=== PATIENT | female | born 1940 | race Caucasian/White ===

== ENCOUNTER 2018-02-21 06:54 | Emergency (ER) | payer MEDICARE, BC ==
[~2018-02-21] VITALS: Ht 545.9 cm; Wt 60.0 kg
[~2018-02-21 06:54] MED LIST: ASPI-1265 PO; BIMA2.5D4 OP; LIDO700A32 TOP; LISI-222 PO; METF500T7 PO; RIVA20TA PO; SIMV80TA2 PO
[2018-02-21 06:58] VITALS: BP 172/87
[2018-02-21] MEDS ORDERED: LIDOcaine 1.5% w/epinephrine 1:200,000 5ml ampul IJ ONE (07:20)
[2018-02-21 10:09] LABS: COLOR,SYNOVIAL FLUID RED
[2018-02-21 10:10] LABS: APPEARANCE,SYNOVIAL FLUID CLOUDY; SYN RBC 31000 /CU MM (0); SYN WBC 606 /CU MM (0-200)
[2018-02-21 10:16] LABS: SYNOVIAL FLUID CRYSTALS QT NO CRYSTALS SEEN
== END 2018-02-21 08:42 | disposition home or self-care (01) ==
LOC: ER 06:55
DX: M70.21 Olecranon bursitis, right elbow (principal); I48.91 Unspecified atrial fibrillation; I25.10 Atherosclerotic heart disease of native coronary artery without angina pectoris; E78.00 Pure hypercholesterolemia, unspecified; I10 Essential (primary) hypertension; Z90.49 Acquired absence of other specified parts of digestive tract; Z90.710 Acquired absence of both cervix and uterus; Z95.1 Presence of aortocoronary bypass graft; Z86.73 Personal history of transient ischemic attack (TIA), and cerebral infarction without residual deficits; Z98.890 Other specified postprocedural states; Z79.82 Long term (current) use of aspirin; Z79.84 Long term (current) use of oral hypoglycemic drugs; Z79.899 Other long term (current) drug therapy; Y93.89 Activity, other specified
CPT/HCPCS: 20605; 89051; 89060; 99284; J3490

== ENCOUNTER 2018-11-21 00:08 | Emergency (ER) | payer MEDICARE, BC ==
[~2018-11-21] VITALS: Ht 154.9 cm; Wt 64.5 kg
[2018-11-21] MEDS ORDERED: aspirin 81mg tab.chew PO ONE (00:15)
[2018-11-21 01:03] LABS: BASOPHILS % (AUTO) 0.1 % (0-1); EOSINOPHILS # (AUTO) 0.3 X10'3 (0-0.9); EOSINOPHILS % (AUTO) 4.8 % (0-6); HEMATOCRIT 37.8 % (35.0-45.0); HEMOGLOBIN 12.1 g/dl (12.0-16.0); LYMPHOCYTES % (AUTO) 28.3 % (21-51); MEAN CORPUSCULAR HEMOGLOBIN 28.8 PG (27.0-31.0); MONOCYTES # (AUTO) 0.6 X10'3 (0-0.9); MONOCYTES % (AUTO) 8.9 % (2-12); NEUTROPHILS # (AUTO) 4.1 X10'3 (1.8-7.7); NEUTROPHILS % (AUTO) 57.9 % (42-75); PLATELET COUNT 222 X10'3 (140-440)
[2018-11-21 01:31] LABS: ALANINE AMINOTRANSFERASE 26 U/L (12-78); ALBUMIN 3.4 G/DL (3.4-5.0); ALBUMIN/GLOBULIN RATIO 1.2 (1.1-1.5); ALKALINE PHOSPHATASE 76 IU/L (46-116); ANION GAP 10 (8-16); ASPARTATE AMINO TRANSFERASE 22 U/L (10-37); BILIRUBIN,TOTAL 0.2 MG/DL (0.1-1.0); BLOOD UREA NITROGEN 20 MG/DL (7-18); BUN/CREATININE RATIO 19.4 (6.6-38.0); CALCIUM 8.8 MG/DL (8.5-10.1); CHLORIDE 108 MMOL/L (99-107); CREATININE 1.03 MG/DL (0.40-0.90); GLUCOSE 162 MG/DL (70-104); SODIUM 141 MMOL/L (135-145); TOTAL CARBON DIOXIDE 22.7 MMOL/L (24-32); TOTAL PROTEIN 6.3 G/DL (6.4-8.2); eGFR 52 ML/MIN
[2018-11-21 01:33] LABS: INR 1.3 INR; PARTIAL THROMBOPLASTIN TIME 35 SECONDS (22-32); PROTHROMBIN TIME 13.3 SECONDS (9.0-12.0)
[2018-11-21 01:38] LABS: MAGNESIUM 1.8 MG/DL (1.5-2.4)
[2018-11-21 03:30] VITALS: BP 142/80
[2018-11-21] MEDS ORDERED: acetaminophen 325mg tablet PO ONE (03:55)
== END 2018-11-21 04:58 | disposition home or self-care (01) ==
LOC: ER 00:08
DX: R00.2 Palpitations (principal); M25.512 Pain in left shoulder; I48.91 Unspecified atrial fibrillation; I25.10 Atherosclerotic heart disease of native coronary artery without angina pectoris; E78.00 Pure hypercholesterolemia, unspecified; I10 Essential (primary) hypertension; Z86.73 Personal history of transient ischemic attack (TIA), and cerebral infarction without residual deficits; Z95.1 Presence of aortocoronary bypass graft; Z90.49 Acquired absence of other specified parts of digestive tract; Z90.710 Acquired absence of both cervix and uterus; Z79.82 Long term (current) use of aspirin; Z79.899 Other long term (current) drug therapy
CPT/HCPCS: 36415; 71045; 80053; 83735; 83880; 84484; 85025; 85379; 85610; 85730; 93005; 99284

== ENCOUNTER 2019-11-07 11:10 | Inpatient (IN) | payer MEDICARE, BC ==
[~2019-11-07] VITALS: Ht 154.9 cm; Wt 60.7 kg
[~2019-11-07 11:10] MED LIST changes: +METF500T20 PO; -METF500T7 PO
[2019-11-07 11:30] VITALS: BP 147/79
[2019-11-07] MEDS ORDERED: diphenhydrAMINE 25mg capsule PO PRN (11:35)
[2019-11-07] MEDS ORDERED: LORazepam 0.5 MG tablet PO PRN (11:35)
[2019-11-07] MEDS: normal saline 1,000 ML IV SCH ×2 (11:59→21:07)
[2019-11-07 12:05] LABS: BASOPHILS # (AUTO) 0.1 X10'3 (0-0.2); BASOPHILS % (AUTO) 0.7 % (0-1); EOSINOPHILS # (AUTO) 0.1 X10'3 (0-0.9); EOSINOPHILS % (AUTO) 1.3 % (0-6); HEMATOCRIT 40.5 % (35.0-45.0); HEMOGLOBIN 13.5 g/dl (12.0-16.0); LYMPHOCYTES # (AUTO) 1.5 X10'3 (1.1-4.8); LYMPHOCYTES % (AUTO) 15.4 % (21-51); MEAN CORPUSCULAR HEMOGLOBIN 30.4 PG (27.0-31.0); MEAN CORPUSCULAR HGB CONC 33.2 g/dL (33.0-36.5); MEAN CORPUSCULAR VOLUME 91.4 FL (78-98); MEAN PLATELET VOLUME 9.5 FL (7.4-10.4); MONOCYTES # (AUTO) 0.6 X10'3 (0-0.9); MONOCYTES % (AUTO) 6.8 % (2-12); NEUTROPHILS # (AUTO) 7.1 X10'3 (1.8-7.7); NEUTROPHILS % (AUTO) 75.8 % (42-75); PLATELET COUNT 240 X10'3 (140-440); RED BLOOD COUNT 4.43 X10'6 (4.20-5.60); RED CELL DISTRIBUTION WIDTH 14.2 % (11.5-14.5); WHITE BLOOD COUNT 9.4 X10'3 (4.5-11.0)
[2019-11-07] MEDS ORDERED: LISI-644 PO (12:13)
[2019-11-07 12:14] LABS: ALBUMIN 4.1 G/DL (3.4-5.0); ANION GAP 13 (8-16); BLOOD UREA NITROGEN 22 MG/DL (7-18); BUN/CREATININE RATIO 16.9 (6.6-38.0); CALCIUM 9.6 MG/DL (8.5-10.1); CHLORIDE 107 MMOL/L (99-107); GLUCOSE 145 MG/DL (70-104); POTASSIUM 4.4 MMOL/L (3.5-5.1); SODIUM 141 MMOL/L (135-145); TOTAL CARBON DIOXIDE 21.4 MMOL/L (24-32); eGFR 39 ML/MIN
[2019-11-07] MEDS ORDERED: MAGN400C PO (12:16)
[2019-11-07] MEDS ORDERED: CLOP75TA15 PO (12:16)
[2019-11-07] MEDS ORDERED: DILT-88 PO (12:16)
[2019-11-07] MEDS ORDERED: LIDOcaine 1% (10mg/ml)w/preservative injection 20ml MDV ONE (15:31)
[2019-11-07] MEDS ORDERED: iohexol 350MG/ML 100ml bottle IV ONE ×2 (15:31→17:51)
[2019-11-07] MEDS ORDERED: heparin 1,000 UNITS/NS 500ml 500 ML ONE (15:32)
[2019-11-07] MEDS ORDERED: atropine 0.1mg/ml 10ml syringe ONE (16:56)
[2019-11-07] MEDS ORDERED: fentaNYL/PF 50MCG/1 ML 2ML syringe ONE (16:56)
[2019-11-07] MEDS ORDERED: midazolam 2 mg/2 ml injection ONE (16:56)
[2019-11-07] MEDS ORDERED: phenylephrine 10mg/ml inj. ONE (16:56)
[2019-11-07] MEDS ORDERED: DOPamine 400mg/D5W 250ml 250 ML IV ONE (17:29)
[2019-11-07] MEDS ORDERED: heparin 1,000unit/ml 10ml vial 10 ML ONE (17:46)
[2019-11-07] MEDS ORDERED: clopidogrel 300mg tablet ONE (18:36)
[2019-11-07 19:05] VITALS: BP 91/36
[2019-11-07] MEDS ORDERED: OXAZEpam 15mg capsule PO PRN (19:20)
[2019-11-07] MEDS ORDERED: HYDROcodone/acetaminophen 10/325mg tab PO PRN (19:20)
[2019-11-07] MEDS ORDERED: HYDROcodone/acetaminophen 5mg/325mg tablet PO PRN (19:20)
[2019-11-07] MEDS ORDERED: acetaminophen 325mg tablet PO PRN (19:20)
[2019-11-07] MEDS ORDERED: magnesium oxide 400mg tablet PO SCH (19:20)
[2019-11-07] MEDS ORDERED: hydrALAZINE 20mg/ml inj. IV PRN (19:20)
[2019-11-07] MEDS ORDERED: DOPamine 400mg/D5W 250ml 250 ML IV SCH (19:20)
[2019-11-07] MEDS ORDERED: pseudoephedrine 30mg tablet PO PRN (19:20)
--- NOTE | 2019-11-07 19:36 | NUR ---
Patient arrived from Short stay to PCU at 1900. Alert, oriented x4. She will be at bedrest for 6 hours, until 0100.
[2019-11-07] MEDS: normal saline 1000ml 1,000 ML IV SCH (20:59)
[2019-11-07] MEDS ORDERED: latanoprost 0.005% 2.5ml ophthalmic drops EACHEYE SCH (21:00)
[2019-11-07] MEDS ORDERED: atorvastatin 20mg tablet PO SCH (21:00)
[2019-11-07] MEDS ORDERED: diltiazem CD 120mg capsule (once-daily) PO SCH (21:00)
[2019-11-07 22:00] VITALS: BP 103/79
[2019-11-07 22:35] VITALS: BP 103/79
--- NOTE | 2019-11-07 23:53 | NUR ---
Patient is doing fine. Not on any distress at the time, the right groin site is clean, dry, intact, No tenderness, no swelling, or pain upon touching the area. No hematoma.
[2019-11-08 02:00] VITALS: BP 94/48
[2019-11-08] MEDS: normal saline 1000ml 1,000 ML IV SCH (05:20)
--- NOTE | 2019-11-08 06:20 | NUR ---
Patient in room PCU 3026. I have received report from CHERRY Randle and had the opportunity to ask questions and assume patient care.
--- NOTE | 2019-11-08 06:21 | NUR ---
Problems reprioritized. Patient report given to TeriRN, questions answered & plan of care reviewed with
[2019-11-08 07:00] VITALS: BP 89/46
--- NOTE | 2019-11-08 07:09 | NUR ---
Talked to CASS Colon regarding no code status in computer, she informed me she would place order in computer.
[2019-11-08] MEDS ORDERED: DILT-88 PO (07:50)
[2019-11-08] MEDS ORDERED: LISI-644 PO (07:50)
[2019-11-08] MEDS ORDERED: METF500T20 PO (07:50)
[2019-11-08 08:00] VITALS: BP_SYST 88
[2019-11-08] MEDS ORDERED: lisinopril 20mg tablet PO SCH (08:00)
[2019-11-08] MEDS ORDERED: clopidogrel 75mg tablet PO SCH (08:00)
--- NOTE | 2019-11-08 08:00 | NUR ---
Patient's skin looked clean and dry, no previous wounds were noted at time of physical assessment. Right groin had a dressing over site from angiogram that was done on 11/07/19 which was clean, dry and intact.
[2019-11-08] MEDS ORDERED: normal saline 500ml IV soln 1,000 ML IV ONE (09:20)
--- NOTE | 2019-11-08 09:20 | NUR ---
Informed CASS Colon of patient blood pressure being 82/40, got a new verbal order to give a one time Bolus of normal saline 250ml. Will continue to monitor blood pressure.
[2019-11-08] MEDS: normal saline 1,000 ML IV SCH (09:27)
--- NOTE | 2019-11-08 10:47 | NUR ---
Patient stable for discharge. All instructions were given, questions were answered. Belongings were collected and sent with patient. PIV discontinued, cannula intact. Tele discontinued, telegraph service clerk notified. Transferred patient to lobby in wheelchair, and helped into brother in law's personal vehicle.
[2019-11-08] MEDS ORDERED: rivaroxaban 20mg tablet PO SCH (21:00)
[2019-11-09] MEDS ORDERED: metFORMIN 500mg tablet PO SCH (07:30)
== END 2019-11-08 12:35 | disposition home or self-care (01) | DRG 35 ==
LOC: SSTAY O 11:10 → PCU 3S 21:10
PROVIDERS: ADMIT Internal Medicine Interventional Cardiology; ATTEND Internal Medicine Interventional Cardiology
PROC: 037K34Z Dilation of Right Internal Carotid Artery with Drug-eluting Intraluminal Device, Percutaneous Approach (ICD-10-PCS; principal; 2019-11-07)
PROC: B3191ZZ Fluoroscopy of Right External Carotid Artery using Low Osmolar Contrast (ICD-10-PCS; 2019-11-07)
PROC: B3161ZZ Fluoroscopy of Right Internal Carotid Artery using Low Osmolar Contrast (ICD-10-PCS; 2019-11-07)
PROC: B41F1ZZ Fluoroscopy of Right Lower Extremity Arteries using Low Osmolar Contrast (ICD-10-PCS; 2019-11-07)
DX: I65.23 Occlusion and stenosis of bilateral carotid arteries (principal); I42.9 Cardiomyopathy, unspecified; E11.9 Type 2 diabetes mellitus without complications; I48.0 Paroxysmal atrial fibrillation; I10 Essential (primary) hypertension; I27.20 Pulmonary hypertension, unspecified; N28.9 Disorder of kidney and ureter, unspecified; Z79.84 Long term (current) use of oral hypoglycemic drugs; Z79.899 Other long term (current) drug therapy
CPT/HCPCS: 36415; 80048; 82948; 85025; 85610; 93005; G0378; J0461; J1265; J1644; J2001; J2250; J2370; J3010; J7030; J7040; Q0163; Q9967

== ENCOUNTER 2019-11-11 07:22 | Emergency (ER) | payer MEDICARE, BC ==
[~2019-11-11] VITALS: Ht 154.9 cm; Wt 62.0 kg
[~2019-11-11 07:22] MED LIST changes: -ASPI-1265 PO; +CLOP75TA15 PO; +DILT-88 PO; -LIDO700A32 TOP; -LISI-222 PO; +LISI-644 PO; +MAGN400C PO
[2019-11-11 08:13] LABS: BASOPHILS # (AUTO) 0.1 X10'3 (0-0.2); BASOPHILS % (AUTO) 0.7 % (0-1); EOSINOPHILS # (AUTO) 0.3 X10'3 (0-0.9); EOSINOPHILS % (AUTO) 3.4 % (0-6); LYMPHOCYTES # (AUTO) 1.9 X10'3 (1.1-4.8); LYMPHOCYTES % (AUTO) 23.4 % (21-51); MEAN CORPUSCULAR HEMOGLOBIN 31.1 PG (27.0-31.0); MEAN CORPUSCULAR HGB CONC 33.5 g/dL (33.0-36.5); MEAN PLATELET VOLUME 10.1 FL (7.4-10.4); MONOCYTES # (AUTO) 0.7 X10'3 (0-0.9); MONOCYTES % (AUTO) 8.6 % (2-12); NEUTROPHILS # (AUTO) 5.2 X10'3 (1.8-7.7); NEUTROPHILS % (AUTO) 63.9 % (42-75); PLATELET COUNT 223 X10'3 (140-440); RED BLOOD COUNT 3.22 X10'6 (4.20-5.60); RED CELL DISTRIBUTION WIDTH 14.3 % (11.5-14.5); WHITE BLOOD COUNT 8.1 X10'3 (4.5-11.0)
--- NOTE | 2019-11-11 08:19 | NUR ---
general assesment compleated by my self jenn garcia
[2019-11-11 08:27] LABS: PARTIAL THROMBOPLASTIN TIME 30 SECONDS (22-32)
[2019-11-11 08:28] LABS: ALANINE AMINOTRANSFERASE 27 U/L (12-78); ALBUMIN 3.6 G/DL (3.4-5.0); ALBUMIN/GLOBULIN RATIO 1.1 (1.1-1.5); ALKALINE PHOSPHATASE 65 IU/L (46-116); ANION GAP 10 (8-16); ASPARTATE AMINO TRANSFERASE 34 U/L (10-37); BILIRUBIN,TOTAL 0.4 MG/DL (0.1-1.0); BLOOD UREA NITROGEN 14 MG/DL (7-18); BUN/CREATININE RATIO 12.8 (6.6-38.0); CHLORIDE 110 MMOL/L (99-107); CREATININE 1.09 MG/DL (0.40-0.90); GLUCOSE 130 MG/DL (70-104); SODIUM 142 MMOL/L (135-145); TOTAL CARBON DIOXIDE 21.6 MMOL/L (24-32); eGFR 48 ML/MIN
[2019-11-11 08:44] VITALS: BP 123/56
[2019-11-11 09:11] LABS: D-DIMER 0.43 MG/L FEU (0-0.50)
--- NOTE | 2019-11-11 09:25 | NUR ---
geoscience technician at bedside for study as ordered.
[2019-11-11] MEDS ORDERED: furosemide 10 MG/1 ML 10ml inj IV ONE (09:55)
[2019-11-11] MEDS ORDERED: furosemide 40mg/4ml inj IV ONE (09:55)
== END 2019-11-11 10:15 | disposition home or self-care (01) ==
LOC: ER 07:22
DX: R06.02 Shortness of breath (principal); I10 Essential (primary) hypertension; E78.00 Pure hypercholesterolemia, unspecified; I48.91 Unspecified atrial fibrillation; I25.10 Atherosclerotic heart disease of native coronary artery without angina pectoris; Z90.49 Acquired absence of other specified parts of digestive tract; Z90.710 Acquired absence of both cervix and uterus; Z90.89 Acquired absence of other organs; Z95.1 Presence of aortocoronary bypass graft; Z79.899 Other long term (current) drug therapy
CPT/HCPCS: 36415; 71045; 80053; 83880; 84484; 85025; 85379; 85610; 85730; 93306; 96374; 99285; J1940; 93005

== ENCOUNTER 2020-11-05 16:16 | Emergency (ER) | payer MEDICARE, BC ==
[~2020-11-05] VITALS: Ht 154.9 cm; Wt 63.0 kg
[~2020-11-05 16:16] MED LIST changes: +METF-900 PO; -METF500T20 PO
[2020-11-05] MEDS ORDERED: HYDROcodone/acetaminophen 10/325mg tab PO ONE (17:30)
[2020-11-05] MEDS ORDERED: HYDR-3973 PO (17:34)
[2020-11-05 18:11] VITALS: BP 179/88
== END 2020-11-05 18:15 | disposition home or self-care (01) ==
LOC: ER 16:17
DX: S22.31XA Fracture of one rib, right side, initial encounter for closed fracture (principal); I48.91 Unspecified atrial fibrillation; I25.10 Atherosclerotic heart disease of native coronary artery without angina pectoris; E78.00 Pure hypercholesterolemia, unspecified; I10 Essential (primary) hypertension; Z86.73 Personal history of transient ischemic attack (TIA), and cerebral infarction without residual deficits; Z90.89 Acquired absence of other organs; Z90.710 Acquired absence of both cervix and uterus; Z90.49 Acquired absence of other specified parts of digestive tract; Z98.890 Other specified postprocedural states; Z79.899 Other long term (current) drug therapy; X58.XXXA Exposure to other specified factors, initial encounter; Y93.89 Activity, other specified; Y92.89 Other specified places as the place of occurrence of the external cause; Y99.8 Other external cause status
CPT/HCPCS: 71101; 99284

== ENCOUNTER 2021-06-11 13:48 | Inpatient (IN) | payer MEDICARE, BC ==
[~2021-06-11] VITALS: Ht 154.9 cm; Wt 62.7 kg
[2021-06-11 14:43] LABS: BASOPHILS # (AUTO) 0.1 X10'3 (0-0.2); BASOPHILS % (AUTO) 0.9 % (0-1); EOSINOPHILS # (AUTO) 0.3 X10'3 (0-0.9); EOSINOPHILS % (AUTO) 2.8 % (0-6); LYMPHOCYTES # (AUTO) 1.3 X10'3 (1.1-4.8); LYMPHOCYTES % (AUTO) 13.2 % (21-51); MEAN CORPUSCULAR HEMOGLOBIN 17.5 PG (27.0-31.0); MEAN CORPUSCULAR HGB CONC 29.3 g/dL (33.0-36.5); MEAN CORPUSCULAR VOLUME 59.8 FL (78-98); MEAN PLATELET VOLUME 8.4 FL (7.4-10.4); MONOCYTES # (AUTO) 0.6 X10'3 (0-0.9); MONOCYTES % (AUTO) 6.6 % (2-12); NEUTROPHILS # (AUTO) 7.5 X10'3 (1.8-7.7); NEUTROPHILS % (AUTO) 76.5 % (42-75); PLATELET COUNT 464 X10'3 (140-440); RED BLOOD COUNT 3.14 X10'6 (4.20-5.60); RED CELL DISTRIBUTION WIDTH 19.7 % (11.5-14.5); WHITE BLOOD COUNT 9.7 X10'3 (4.5-11.0)
[2021-06-11 14:52] LABS: HEMATOCRIT 18.8 % (35.0-45.0)
[2021-06-11 14:55] LABS: ALANINE AMINOTRANSFERASE 24 U/L (12-78); ALBUMIN 4.1 G/DL (3.4-5.0); ALBUMIN/GLOBULIN RATIO 1.1 (1.1-1.5); ALKALINE PHOSPHATASE 71 IU/L (46-116); ANION GAP 16 (8-16); ASPARTATE AMINO TRANSFERASE 19 U/L (10-37); BILIRUBIN,TOTAL 0.4 MG/DL (0.1-1.0); BLOOD UREA NITROGEN 34 MG/DL (7-18); BUN/CREATININE RATIO 20.7 (6.6-38.0); CHLORIDE 103 MMOL/L (99-107); CREATININE 1.64 MG/DL (0.40-0.90); GLUCOSE 213 MG/DL (70-104); POTASSIUM 4.1 MMOL/L (3.5-5.1); SODIUM 141 MMOL/L (135-145); TOTAL CARBON DIOXIDE 22.5 MMOL/L (24-32); eGFR 30 ML/MIN
[2021-06-11] MEDS ORDERED: pantoprazole 40 MG vial IV ONE (15:00)
[2021-06-11] MEDS ORDERED: CefTRIAXone 2gm/D5W 50ml BAG 50 ML IV ONE (15:00)
[2021-06-11] MEDS ORDERED: normal saline 1000ML IV soln IV ONE (15:00)
[2021-06-11 15:29] LABS: ANISOCYTOSIS 2+; MICROCYTOSIS 3+; PLATELET ESTIMATE INCREASED
[2021-06-11 15:30] LABS: HYPOCHROMASIA 2+; SCHISTOCYTES FEW
[2021-06-11 15:31] LABS: BURR CELLS FEW
[2021-06-11] MEDS ORDERED: BIMA2.5D EACHEYE (16:22)
[2021-06-11] MEDS ORDERED: DILT-35 PO (16:22)
[2021-06-11] MEDS ORDERED: LISI20TA28 PO (16:22)
[2021-06-11] MEDS ORDERED: FURO40TA4 PO (16:22)
[2021-06-11] MEDS: pantoprazole 40MG/NS 100ML BAG 100 ML IV SCH ×2 (16:22→20:09)
[2021-06-11] MEDS ORDERED: METF-1203 PO (16:22)
[2021-06-11] MEDS ORDERED: POTA-207 PO (16:22)
[2021-06-11] MEDS ORDERED: PANT40TA54 PO (16:25)
[2021-06-11] MEDS ORDERED: ALEN70TA80 PO (16:25)
[2021-06-11 17:26] VITALS: BP 130/48
[2021-06-11 17:55] VITALS: BP 131/52
[2021-06-11 17:58] LABS: OCCULT BLOOD STOOL POSITIVE (Neg)
[2021-06-11] MEDS ORDERED: ondansetron/PF 4mg/2ml inj IV PRN (18:00)
[2021-06-11] MEDS ORDERED: potassium Cl 40MEQ/1/2NS 520ml 520 ML IV PRN ×2 (18:00)
[2021-06-11] MEDS ORDERED: normal saline 1000ml 1,000 ML IV SCH (18:00)
[2021-06-11] MEDS ORDERED: sodium ferric gluc complex inj 125 MG in normal saline 100ml IV soln 90 ML IV ONE (18:05)
[2021-06-11] MEDS: K and/or MAG REPLACEMENT MC SCH (19:10)
[2021-06-11] MEDS: diltiazem 30mg tablet PO SCH (20:09)
[2021-06-11 21:08] VITALS: BP 129/60
[2021-06-11 21:42] VITALS: BP 116/54
[2021-06-11] MEDS: latanoprost 0.005% 2.5ml ophthalmic drops EACHEYE SCH (21:44)
--- NOTE | 2021-06-11 22:33 | NUR ---
Patient in room ED 5. I have received report from Krissy CAREY and had the opportunity to ask questions and assume patient care.
--- NOTE | 2021-06-11 23:40 | NUR ---
Pt arrived from the ER. Pt had a feildstart IV to her left AC with blood infusing per MD orders. Upon my assessment the IV appeared to be infiltrated. Blood was paused and a new IV was initiated. Called the blood bank to verify that the blood was okay to continue to run. The 4 hour linnea will be at 0142. I will continue to monitor to ensure the blood is infused or stopped within the 4 hour window.
[2021-06-12] VITALS (14 sets, daily range): BP systolic 107–159; BP diastolic 33–67
[2021-06-12] MEDS: diltiazem 30mg tablet PO SCH ×4 (01:31→19:51)
[2021-06-12] MEDS: pantoprazole 40MG/NS 100ML BAG 100 ML IV SCH ×5 (01:31→20:28)
--- NOTE | 2021-06-12 06:18 | NUR ---
Patient in room [facility] 347. I have received report from CHERRY Shah and had the opportunity to ask questions and assume patient care.
[2021-06-12 06:20] LABS: BASOPHILS # (AUTO) 0.1 X10'3 (0-0.2); BASOPHILS % (AUTO) 1.1 % (0-1); EOSINOPHILS # (AUTO) 0.3 X10'3 (0-0.9); EOSINOPHILS % (AUTO) 3.6 % (0-6); HEMATOCRIT 28.8 % (35.0-45.0); HEMOGLOBIN 9.5 g/dl (12.0-16.0); LYMPHOCYTES # (AUTO) 1.4 X10'3 (1.1-4.8); LYMPHOCYTES % (AUTO) 15.2 % (21-51); MEAN CORPUSCULAR HEMOGLOBIN 23.7 PG (27.0-31.0); MEAN CORPUSCULAR VOLUME 71.9 FL (78-98); MEAN PLATELET VOLUME 8.3 FL (7.4-10.4); MONOCYTES # (AUTO) 0.9 X10'3 (0-0.9); MONOCYTES % (AUTO) 9.4 % (2-12); NEUTROPHILS # (AUTO) 6.7 X10'3 (1.8-7.7); NEUTROPHILS % (AUTO) 70.7 % (42-75); PLATELET COUNT 317 X10'3 (140-440); RED BLOOD COUNT 4.01 X10'6 (4.20-5.60); RED CELL DISTRIBUTION WIDTH 27.5 % (11.5-14.5); WHITE BLOOD COUNT 9.4 X10'3 (4.5-11.0)
--- NOTE | 2021-06-12 06:20 | NUR ---
Problems reprioritized. Patient report given, questions answered & plan of care reviewed with Fidelia CAREY.
[2021-06-12 07:32] LABS: ALANINE AMINOTRANSFERASE 18 U/L (12-78); ALBUMIN 3.4 G/DL (3.4-5.0); ALBUMIN/GLOBULIN RATIO 0.9 (1.1-1.5); ALKALINE PHOSPHATASE 64 IU/L (46-116); ANION GAP 16 (8-16); ASPARTATE AMINO TRANSFERASE 24 U/L (10-37); BILIRUBIN,TOTAL 0.7 MG/DL (0.1-1.0); BLOOD UREA NITROGEN 23 MG/DL (7-18); BUN/CREATININE RATIO 20.4 (6.6-38.0); CALCIUM 8.2 MG/DL (8.5-10.1); CHLORIDE 110 MMOL/L (99-107); CREATININE 1.13 MG/DL (0.40-0.90); GLUCOSE 161 MG/DL (70-104); POTASSIUM 4.5 MMOL/L (3.5-5.1); SODIUM 145 MMOL/L (135-145); TOTAL CARBON DIOXIDE 18.8 MMOL/L (24-32); eGFR 46 ML/MIN
--- NOTE | 2021-06-12 07:56 | NUR ---
Patient down to GI lab in wheel chair with samira michaels.
[2021-06-12] MEDS: K and/or MAG REPLACEMENT MC SCH ×3 (08:00→19:50)
[2021-06-12] MEDS ORDERED: MIDAZolam 1 MG/ML 5ML VIAL ONE (08:15)
[2021-06-12] MEDS ORDERED: fentaNYL/PF 50MCG/1 ML 2ML syringe ONE (08:15)
[2021-06-12] MEDS ORDERED: LIDOcaine Viscous 15ml cup ONE (08:16)
[2021-06-12 09:03] LABS: ANISOCYTOSIS 3+; PLATELET ESTIMATE NORMAL
[2021-06-12 09:04] LABS: BURR CELLS 1+; ELLIPTOCYTES FEW; MICROCYTOSIS 1+; SCHISTOCYTES FEW
[2021-06-12] MEDS ORDERED: magnesium Cl slow-release 64mg tablet PO PRN (09:05)
[2021-06-12] MEDS ORDERED: magnesium 4gm in 100ml NS 100 ML IV PRN (09:05)
[2021-06-12 10:40] LABS: HEMOGLOBIN 5.5 g/dl (12.0-16.0)
--- NOTE | 2021-06-12 11:10 | NUR ---
Patient returned from GI lab. Patient alert and oriented in bed with no complaints at this time.
[2021-06-12 11:35] LABS: HEMATOCRIT 28.4 % (35.0-45.0); HEMOGLOBIN 9.1 g/dl (12.0-16.0); MEAN CORPUSCULAR HGB CONC 32.1 g/dL (33.0-36.5); MEAN CORPUSCULAR VOLUME 71.8 FL (78-98); PLATELET COUNT 320 X10'3 (140-440); RED BLOOD COUNT 3.96 X10'6 (4.20-5.60); RED CELL DISTRIBUTION WIDTH 27.9 % (11.5-14.5); WHITE BLOOD COUNT 7.8 X10'3 (4.5-11.0)
--- NOTE | 2021-06-12 13:25 | NUR ---
PAGER ID: [phone] MESSAGE: [phone]- Sandy Boyle- pt asking for food. ok to order full liq diet? had EGD done. Thank you- Fidelia [phone]
[2021-06-12 16:51] LABS: HEMATOCRIT 28.9 % (35.0-45.0); HEMOGLOBIN 9.3 g/dl (12.0-16.0); MEAN CORPUSCULAR HEMOGLOBIN 22.8 PG (27.0-31.0); MEAN CORPUSCULAR VOLUME 71.3 FL (78-98); MEAN PLATELET VOLUME 8.6 FL (7.4-10.4); PLATELET COUNT 340 X10'3 (140-440); RED BLOOD COUNT 4.06 X10'6 (4.20-5.60); RED CELL DISTRIBUTION WIDTH 27.8 % (11.5-14.5); WHITE BLOOD COUNT 7.9 X10'3 (4.5-11.0)
--- NOTE | 2021-06-12 18:15 | NUR ---
Problems reprioritized. Patient report given, questions answered & plan of care reviewed with CHERRY Vazquez.
--- NOTE | 2021-06-12 18:20 | NUR ---
Patient in room [facility] 347. I have received report from Fidelia CAREY and had the opportunity to ask questions and assume patient care.
[2021-06-12] MEDS: latanoprost 0.005% 2.5ml ophthalmic drops EACHEYE SCH (19:51)
[2021-06-12 22:14] LABS: HEMATOCRIT 26.7 % (35.0-45.0); HEMOGLOBIN 8.5 g/dl (12.0-16.0); MEAN CORPUSCULAR HEMOGLOBIN 22.6 PG (27.0-31.0); MEAN CORPUSCULAR HGB CONC 31.8 g/dL (33.0-36.5); MEAN CORPUSCULAR VOLUME 71.2 FL (78-98); MEAN PLATELET VOLUME 8.1 FL (7.4-10.4); PLATELET COUNT 313 X10'3 (140-440); RED BLOOD COUNT 3.75 X10'6 (4.20-5.60); RED CELL DISTRIBUTION WIDTH 28.1 % (11.5-14.5); WHITE BLOOD COUNT 8.7 X10'3 (4.5-11.0)
[2021-06-13] VITALS: BP 134/59
[2021-06-13] MEDS: pantoprazole 40MG/NS 100ML BAG 100 ML IV SCH ×2 (00:23→04:39)
[2021-06-13 01:48] VITALS: BP 135/49
[2021-06-13] MEDS: diltiazem 30mg tablet PO SCH ×3 (01:48→13:09)
--- NOTE | 2021-06-13 06:40 | NUR ---
Problems reprioritized. Patient report given, questions answered & plan of care reviewed with Heaven CAREY.
--- NOTE | 2021-06-13 06:44 | NUR ---
Patient in room [facility] 347. I have received report from Taylor CAREY and had the opportunity to ask questions and assume patient care.
[2021-06-13] MEDS: K and/or MAG REPLACEMENT MC SCH ×2 (07:43)
[2021-06-13 08:00] VITALS: BP 131/51
[2021-06-13] MEDS ORDERED: clopidogrel 75mg tablet PO SCH (08:00)
[2021-06-13] MEDS ORDERED: furosemide 40mg tablet PO SCH (08:00)
[2021-06-13] MEDS ORDERED: magnesium oxide 400mg tablet PO SCH (08:00)
[2021-06-13] MEDS ORDERED: atorvastatin 20mg tablet PO SCH (08:00)
[2021-06-13] MEDS ORDERED: diltiazem CD 120mg capsule (once-daily) PO SCH (08:00)
[2021-06-13 08:22] LABS: BASOPHILS # (AUTO) 0.1 X10'3 (0-0.2); BASOPHILS % (AUTO) 1.2 % (0-1); EOSINOPHILS # (AUTO) 0.4 X10'3 (0-0.9); EOSINOPHILS % (AUTO) 5.5 % (0-6); HEMATOCRIT 27.2 % (35.0-45.0); HEMOGLOBIN 8.7 g/dl (12.0-16.0); MEAN CORPUSCULAR HEMOGLOBIN 23.1 PG (27.0-31.0); MEAN CORPUSCULAR VOLUME 72.1 FL (78-98); MEAN PLATELET VOLUME 8.4 FL (7.4-10.4); MONOCYTES # (AUTO) 0.7 X10'3 (0-0.9); MONOCYTES % (AUTO) 9.5 % (2-12); NEUTROPHILS # (AUTO) 5.1 X10'3 (1.8-7.7); NEUTROPHILS % (AUTO) 69.8 % (42-75); PLATELET COUNT 303 X10'3 (140-440); RED BLOOD COUNT 3.77 X10'6 (4.20-5.60); RED CELL DISTRIBUTION WIDTH 28.2 % (11.5-14.5); WHITE BLOOD COUNT 7.3 X10'3 (4.5-11.0)
[2021-06-13 09:05] LABS: ALANINE AMINOTRANSFERASE 20 U/L (12-78); ALBUMIN 3.1 G/DL (3.4-5.0); ALBUMIN/GLOBULIN RATIO 0.9 (1.1-1.5); ALKALINE PHOSPHATASE 56 IU/L (46-116); ANION GAP 12 (8-16); ASPARTATE AMINO TRANSFERASE 34 U/L (10-37); BILIRUBIN,TOTAL 0.4 MG/DL (0.1-1.0); BLOOD UREA NITROGEN 12 MG/DL (7-18); BUN/CREATININE RATIO 13.8 (6.6-38.0); CALCIUM 8.5 MG/DL (8.5-10.1); CHLORIDE 111 MMOL/L (99-107); CREATININE 0.87 MG/DL (0.40-0.90); GLUCOSE 150 MG/DL (70-104); MAGNESIUM 1.9 MG/DL (1.5-2.4); PHOSPHORUS 2.8 MG/DL (2.3-4.5); POTASSIUM 3.8 MMOL/L (3.5-5.1); SODIUM 145 MMOL/L (135-145); TOTAL CARBON DIOXIDE 22.1 MMOL/L (24-32); TOTAL PROTEIN 6.4 G/DL (6.4-8.2); eGFR 62 ML/MIN
[2021-06-13] MEDS ORDERED: ASCO500C18 PO (09:35)
[2021-06-13] MEDS ORDERED: FERR325T32 PO (09:35)
[2021-06-13] MEDS ORDERED: PANT40TA54 PO (09:35)
--- NOTE | 2021-06-13 09:42 | NUR ---
PAGER ID: [phone] MESSAGE: Heaven CAREY [phone] re: syed Boyle [id number]. pt c/o headache, also may we advance diet. Thank you.
[2021-06-13 10:39] LABS: HEMATOCRIT 30.2 % (35.0-45.0); HEMOGLOBIN 9.9 g/dl (12.0-16.0); MEAN CORPUSCULAR HEMOGLOBIN 23.5 PG (27.0-31.0); MEAN CORPUSCULAR HGB CONC 32.9 g/dL (33.0-36.5); MEAN CORPUSCULAR VOLUME 71.4 FL (78-98); MEAN PLATELET VOLUME 8.3 FL (7.4-10.4); PLATELET COUNT 343 X10'3 (140-440); RED BLOOD COUNT 4.23 X10'6 (4.20-5.60); RED CELL DISTRIBUTION WIDTH 28.2 % (11.5-14.5); WHITE BLOOD COUNT 9.1 X10'3 (4.5-11.0)
[2021-06-13] MEDS ORDERED: sodium ferric gluc complex inj 125 MG in normal saline 100ml IV soln 90 ML IV ONE (10:50)
[2021-06-13] MEDS ORDERED: pantoprazole 40mg Tablet.DR PO ONE (10:50)
[2021-06-13 11:00] VITALS: BP 159/68
--- NOTE | 2021-06-13 13:40 | NUR ---
pt discharged in stable condition. belongings sent with pt. IV's removed, tips intact, no complication. Pt educated on discharge instructions. Pt discharged with sister to home in private vehicle.
[2021-06-13] MEDS ORDERED: rivaroxaban 20mg tablet PO SCH (18:00)
[2021-06-13] MEDS ORDERED: lisinopril 20mg tablet PO SCH (21:00)
== END 2021-06-13 13:30 | disposition home or self-care (01) | DRG 377 ==
LOC: ER 13:49 → ED HOLD 17:59 → SUR 3N 23:10
PROVIDERS: ADMIT Internal Medicine; ATTEND Family Medicine
PROC: 30233N1 Transfusion of Nonautologous Red Blood Cells into Peripheral Vein, Percutaneous Approach (ICD-10-PCS; principal; 2021-06-11)
PROC: 0DB78ZX Excision of Stomach, Pylorus, Via Natural or Artificial Opening Endoscopic, Diagnostic (ICD-10-PCS; 2021-06-12)
DX: K29.51 Unspecified chronic gastritis with bleeding (principal); N17.0 Acute kidney failure with tubular necrosis; E78.00 Pure hypercholesterolemia, unspecified; I10 Essential (primary) hypertension; I25.10 Atherosclerotic heart disease of native coronary artery without angina pectoris; E86.0 Dehydration; I48.91 Unspecified atrial fibrillation; Z20.822 Contact with and (suspected) exposure to COVID-19; K44.9 Diaphragmatic hernia without obstruction or gangrene; D50.0 Iron deficiency anemia secondary to blood loss (chronic); M81.0 Age-related osteoporosis without current pathological fracture; Z79.02 Long term (current) use of antithrombotics/antiplatelets; Z79.01 Long term (current) use of anticoagulants; Z86.73 Personal history of transient ischemic attack (TIA), and cerebral infarction without residual deficits; Z90.49 Acquired absence of other specified parts of digestive tract; Z95.1 Presence of aortocoronary bypass graft; Z90.710 Acquired absence of both cervix and uterus; Z79.899 Other long term (current) drug therapy
CPT/HCPCS: 36415; 36430; 43239; 71045; 74176; 80053; 82272; 83036; 83735; 83880; 84100; 84484; 85008; 85025; 85027; 86870; 86880; 86885; 86900; 86901; 86922; 87081; 87635; 88305; 88342; 93005; 96365; 96366; 96375; 99152; 99291; A4620; C9113; G0378; J0696; J2250; J2916; J3010; J7030; J7040; P9016

== ENCOUNTER 2022-11-05 12:26 | Emergency (ER) | payer MEDICARE, BC ==
[~2022-11-05] VITALS: Ht 154.9 cm; Wt 51.0 kg
[~2022-11-05 12:26] MED LIST changes: +ALEN70TA80 PO; +ASCO500C18 PO; +BIMA2.5D EACHEYE; -BIMA2.5D4 OP; +DILT-35 PO; -DILT-88 PO; +FERR325T32 PO; +FURO40TA4 PO; -LISI-644 PO; +LISI20TA28 PO; +METF-1203 PO; -METF-900 PO; +PANT40TA54 PO; +POTA-207 PO; -RIVA20TA PO
[2022-11-05 12:28] VITALS: BP 198/87
[2022-11-05] MEDS ORDERED: HYDR-3965 PO (13:23)
[2022-11-05] MEDS ORDERED: HYDROcodone/acetaminophen 5mg/325mg tablet PO ONE (13:25)
[2022-11-05] MEDS ORDERED: HYDR-3972 PO (16:04)
== END 2022-11-05 14:52 | disposition home or self-care (01) ==
LOC: ER 12:27
DX: M54.59 Other low back pain (principal); I11.9 Hypertensive heart disease without heart failure; E78.00 Pure hypercholesterolemia, unspecified; I50.9 Heart failure, unspecified; Z98.890 Other specified postprocedural states; Z79.899 Other long term (current) drug therapy; Z79.1 Long term (current) use of non-steroidal anti-inflammatories (NSAID); Z79.2 Long term (current) use of antibiotics; W19.XXXA Unspecified fall, initial encounter; Y93.89 Activity, other specified; Y92.89 Other specified places as the place of occurrence of the external cause; Y99.8 Other external cause status
CPT/HCPCS: 72220; 99284

== ENCOUNTER 2023-04-15 03:40 | Emergency (ER) | payer MEDICARE, BC ==
[~2023-04-15] VITALS: Ht 154.9 cm; Wt 53.6 kg
[2023-04-15 03:46] VITALS: TEMP 97.9
[2023-04-15] MEDS ORDERED: HYDROcodone/acetaminophen 10/325mg tab PO ONE (03:50)
[2023-04-15 04:23] LABS: BASOPHILS # (AUTO) 0.1 X10'3 (0-0.2); BASOPHILS % (AUTO) 0.5 % (0-1); EOSINOPHILS # (AUTO) 0.2 X10'3 (0-0.9); EOSINOPHILS % (AUTO) 1.8 % (0-6); HEMATOCRIT 34.2 % (35.0-45.0); HEMOGLOBIN 10.9 g/dl (12.0-16.0); LYMPHOCYTES # (AUTO) 1.9 X10'3 (1.1-4.8); LYMPHOCYTES % (AUTO) 14.5 % (21-51); MEAN CORPUSCULAR VOLUME 87.5 FL (78-98); MEAN PLATELET VOLUME 9.5 FL (7.4-10.4); MONOCYTES # (AUTO) 1.1 X10'3 (0-0.9); MONOCYTES % (AUTO) 8.6 % (2-12); NEUTROPHILS # (AUTO) 9.9 X10'3 (1.8-7.7); NEUTROPHILS % (AUTO) 74.6 % (42-75); PLATELET COUNT 309 X10'3 (140-440); RED BLOOD COUNT 3.91 X10'6 (4.20-5.60); RED CELL DISTRIBUTION WIDTH 14.9 % (11.5-14.5); WHITE BLOOD COUNT 13.3 X10'3 (4.5-11.0)
[2023-04-15 04:34] LABS: ALANINE AMINOTRANSFERASE 18 U/L (12-78); ALBUMIN 3.9 G/DL (3.4-5.0); ALBUMIN/GLOBULIN RATIO 1.1 (1.1-1.5); ALKALINE PHOSPHATASE 60 IU/L (46-116); ANION GAP 11 (8-16); BILIRUBIN,TOTAL 0.3 MG/DL (0.1-1.0); BLOOD UREA NITROGEN 24 MG/DL (7-18); CALCIUM 9.3 MG/DL (8.5-10.1); CHLORIDE 106 MMOL/L (99-107); CREATININE 1.26 MG/DL (0.40-0.90); GLUCOSE 156 MG/DL (70-104); POTASSIUM 3.9 MMOL/L (3.5-5.1); SODIUM 138 MMOL/L (135-145); TOTAL PROTEIN 7.3 G/DL (6.4-8.2); eCRCL 25 ML/MIN; eGFR 40 ML/MIN
[2023-04-15 04:41] LABS: PRO BRAIN NATRIURETIC PEPTIDE 418 PG/ML (0-450)
[2023-04-15 04:46] LABS: ASPARTATE AMINO TRANSFERASE 31 U/L (10-37)
[2023-04-15 05:14] VITALS: BP 146/89; PULSE 68; RESP 14; O2SAT 100
== END 2023-04-15 05:15 | disposition home or self-care (01) ==
LOC: ER 03:41
DX: M54.2 Cervicalgia (principal); M79.602 Pain in left arm; I11.0 Hypertensive heart disease with heart failure; E78.00 Pure hypercholesterolemia, unspecified; Z90.49 Acquired absence of other specified parts of digestive tract; Z79.899 Other long term (current) drug therapy
CPT/HCPCS: 36415; 71045; 80053; 83880; 84484; 85025; 93005; 99285

== ENCOUNTER 2023-04-16 18:33 | Emergency (ER) | payer MEDICARE, BC ==
[~2023-04-16] VITALS: Ht 154.9 cm; Wt 56.0 kg
[2023-04-16 19:09] VITALS: BP 176/76; PULSE 56; RESP 18; TEMP 98.5; O2SAT 97
--- NOTE | 2023-04-16 21:02 | NUR ---
MARKED BRUISE WITH SKIN MARKER.
== END 2023-04-16 21:04 | disposition home or self-care (01) ==
LOC: ER 18:34
DX: S40.012A Contusion of left shoulder, initial encounter (principal); I10 Essential (primary) hypertension; E78.00 Pure hypercholesterolemia, unspecified; X58.XXXA Exposure to other specified factors, initial encounter; Y93.89 Activity, other specified; Y92.89 Other specified places as the place of occurrence of the external cause; Y99.8 Other external cause status
CPT/HCPCS: 99284